=== PATIENT | male | born 1960 ===

== ENCOUNTER → 2025-03-10 06:41 | Outpatient (REF) | payer BC, SELFPAY ==
[2025-03-10] MEDS: LEXISCAN 0.4 MG IV (08:38)
== END ==
LOC: RCS 06:41
PROVIDERS: ATTENDING PHYSICIAN Internal Medicine Cardiovascular Disease; FAMILY PHYSICIAN Internal Medicine
DX: Z01.810 Encounter for preprocedural cardiovascular examination (principal); I10 Essential (primary) hypertension; E78.5 Hyperlipidemia, unspecified; E11.69 Type 2 diabetes mellitus with other specified complication
CPT/HCPCS: 78452; 93017; A9500; J2785